=== PATIENT | female | born 1940 | race Caucasian/White ===

== ENCOUNTER 2021-07-24 09:57 | Observation (INO) ==
--- NOTE | 2021-07-22 09:46 | Anesthesiology Consultation ---
Date of Service July 22, 2021 Assessment & Plan (1) Encounter for pre-operative examination: - check EKG stat am DOS. To anesthesiologist discretion if additional testing needed am DOS. - COVID screening: Per passenger vessel chef on 07/22/2021: Travel screen negative, no k nown COVID-19 positive contacts or current COVID-19 related symptoms in past 2 weeks. Pt vaccinated. Surgeon arranging preop COVID testing, scheduled 07/22/2021. Awaiting results. Chart Review Chart Review: Acceptable Risk for Surgery and Patient NOT seen in Pre Admission Testing History Surgery Operation Date: 07/24/21 10:35 Proposed Procedures p Laparoscopic Repair Hiatal Hernia with Partial Gastric Fundoplication - Luther Stratton, DO Height/Weight Height: 5 ft 4 in Weight: 72.575 kg Allergies Allergy/AdvReac Type Severity Reaction Status Date / Time nitrofurantoin AdvReac Mild nausea/vomi Verified 07/01/21 11:37 ting sulfamethoxazole AdvReac Mild nausea/vomi Verified 07/01/21 11:37 ting trimethoprim AdvReac Mild nausea/vomi Verified 07/01/21 11:37 ting Medications Home Medications Medication Instructions Recorded Confirmed Last Taken aspirin 81 mg tablet 81 mg PO QAM tab 08/02/18 07/22/21 04/27/21 cyanocobalamin (vitamin B-12) 500 500 mcg PO QAM tab 08/02/18 07/22/21 04/27/21 mcg tablet diphenhydramine HCl 25 mg tablet 25 mg PO HS PRN tab 08/02/18 07/22/21 Unknown loratadine 10 mg tablet 10 mg PO QAM tab 08/02/18 07/22/21 04/27/21 cholecalciferol (vitamin D3) 125 125 mcg PO QAM 04/24/21 07/22/21 04/27/21 mcg (5,000 unit) capsule omeprazole 20 mg capsule,delayed 20 mg PO QAM #90 cap 05/27/21 07/22/21 Unknown release Past Medical History Medical History (Updated 07/22/21 @ 09:45 by Nessa Valdivia PA-C) Chronic GERD Dyslipidemia Dysphagia Hiatal hernia History of COVID-19 diagnosed 02/2020--mild, cold type symptoms--no issues now History of esophageal dilatation Hyperlipidemia Osteopenia Schatzki's ring Past Family History Family History Father Alcohol abuse Sister Lung disease Other No family history of adverse response to anesthesia Stroke Past Surgical History Surgical History History of bilateral cataract extraction History of bilateral tubal ligation History of colonoscopy History of esophagogastroduodenoscopy (EGD) History of partial hysterectomy History of tooth extraction upper denture Social History Smoking Status: Never smoker Do You Dip or Chew Tobacco: No Hx Alcohol Use: No Hx Substance Use: No substance use type: does not use Lab Results Anesthesia Preop Results Results Anesthesia Widget: WBC 6.58 K/uL (4.8-10.8) 07/09/21 Hgb 12.6 g/dL (12.0-16.0) 07/09/21 Hct 38.6 % (37-47) 07/09/21 Plt 223 K/uL (130-400) 07/09/21 Na 137 mmol/L (136-145) 07/09/21 K 4.2 mmol/L (3.5-5.1) 07/09/21 Cl 106 mmol/L (98-107) 07/09/21 CO2 27 mmol/L (21-32) 07/09/21 BUN 27 mg/dl (6-23) H 07/09/21 Creat 0.87 mg/dl (0.6-1.2) 07/09/21 Glucose Level 96 mg/dl (70-99(Fasting)) 07/09/21 Testing Chest X-Ray Date: 07/09/21 No focal parenchymal consolidation
[~2021-07-24 09:57] MED LIST: LR 15ML/HR IV SCH; ceFAZolin 2000MG 2,000 MG/15 ML SYR IV SCH
--- NOTE | 2021-07-24 12:02 | History & Physical Bridge Note ---
Date of Service July 24, 2021 History & Physical Bridge Note I have examined the patient, reviewed the History & Physical and in the interval since the performance of the History & Physical I have noted the following changes of clinical significance: no changes noted
[2021-07-24] MEDS ORDERED: EPINEPHrine INJ 1 MG/ML AMP ONE (12:27)
[2021-07-24] MEDS ORDERED: BUPIVACAINE 0.5 % 5 MG/1 ML MPF 30ML VIAL ONE (12:27)
[2021-07-24] MEDS ORDERED: fentaNYL citrate 100 MCG/2 ML VIAL ONE ×3 (12:32→14:16)
[2021-07-24] MEDS ORDERED: ATROPINE SULFATE 0.1 MG/ML 10ML SYR IV PRN (12:41)
[2021-07-24] MEDS ORDERED: LABETALOL HCL IV 5 MG/ML 20ML IV PRN (12:41)
[2021-07-24] MEDS ORDERED: KETOROLAC TROMETHAMINE 15 MG/ML VIAL IV PRN (12:41)
[2021-07-24] MEDS ORDERED: HYDROmorphone INJ 1 MG/ML SYRINGE IV PRN (12:41)
[2021-07-24] MEDS ORDERED: ONDANSETRON INJ 2 MG/ML 2 ML VIAL IV PRN ×2 (12:41→16:29)
[2021-07-24] MEDS ORDERED: PROPOFOL IV EMULSION 10 MG/ML 20 ML VIAL IV ONE (13:14)
[2021-07-24] MEDS ORDERED: ROCURONIUM BROMIDE 10 MG/ML 5 ML VIAL IV ONE (13:15)
[2021-07-24] MEDS ORDERED: ONDANSETRON INJ 2 MG/ML 2 ML VIAL ONE ×2 (13:15→14:04)
[2021-07-24] MEDS ORDERED: LARYING-O-JET KIT (LTA) ONE (13:18)
[2021-07-24] MEDS ORDERED: GLYCOPYRROLATE 0.2 MG/ML VIAL ONE (13:53)
[2021-07-24] MEDS ORDERED: NEOSTIGMINE METHYLSULFATE 1 MG/ML 10ML VIAL ONE (13:53)
[2021-07-24] MEDS ORDERED: ACETAMINOPHEN 1000 MG/100 ML IV IV ONE (14:01)
--- NOTE | 2021-07-24 14:14 | Post Operative Brief Note ---
PG Immediate Post Op with CF Date of Surgery July 24, 2021 Pre & Post Diagnosis Operation Date: 07/24/21 12:05 Pre-Op Diagnosis: Incarcerated Hiatal Hernia; gerd Post-Op Diagnosis: Incarcerated Hiatal Hernia;gerd I identified the patient and participated in the time-out.: Yes Procedure Operation Date: 07/24/21 12:05 Actual Procedures p Laparoscopic Repair Hiatal Hernia with Toupet (Partial) Gastric Fundoplication(Not Applicable) - Luther Stratton DO Surgeon Luther Stratton DO [employer] angelique Lopez Estimated Blood Loss 10 Findings Consistent with Post-Op Diagnosis Specimens Specimen Description: No specimens per surgeon
[2021-07-24] MEDS ORDERED: SODIUM CHLORIDE 0.9% 50 ML BAG ONE ×2 (14:41→15:09)
[2021-07-24] MEDS ORDERED: PROMETHAZINE HCL INJ 25 MG/ML 1 ML VIAL ONE ×2 (14:42→15:09)
[2021-07-24] MEDS: PROMETHAZINE HCL 6.25 MG in SODIUM CHLORIDE 0.9% 50 ML IV PRN ×2 (14:42→15:12)
[2021-07-24] MEDS ORDERED: PROMETHAZINE HCL 6.25 MG in SODIUM CHLORIDE 0.9% 50 ML IV STA (15:11)
[2021-07-24] MEDS ORDERED: KETOROLAC 30 MG/ML VIAL ONE (15:47)
[2021-07-24] MEDS ORDERED: KETOROLAC 30 MG/ML VIAL IV ONE (15:48)
[2021-07-24] MEDS ORDERED: oxyCODONE HCL IR 5 MG TAB (IMMEDIATE RELEASE) PO PRN ×2 (16:29)
[2021-07-24] MEDS ORDERED: MoRPHine SULFATE 4 MG/ML 1 ML CARP\\VIAL IV PRN (16:29)
[2021-07-24] MEDS ORDERED: MoRPHine SULFATE 2 MG/ML CARP IV PRN (16:29)
[2021-07-24] MEDS ORDERED: PROMETHAZINE HCL 12.5 MG in SODIUM CHLORIDE 0.9% 50 ML IV PRN (16:29)
--- NOTE | 2021-07-24 16:36 | Anesthesiology Progress Note ---
Date of Service July 24, 2021 Anesthesia Post Procedure Vital Signs Vital Signs: Temp Pulse Pulse Resp BP Pulse Ox 07/24/21 16:10 63 17 163/79 H 96 07/24/21 16:00 71 16 141/95 H 97 07/24/21 15:50 60 18 164/68 H 98 07/24/21 15:40 64 14 173/72 H 99 07/24/21 15:30 65 22 154/76 H 93 07/24/21 15:20 62 15 173/69 H 94 07/24/21 15:10 66 21 184/75 H 97 07/24/21 15:00 66 21 161/114 H 97 07/24/21 14:50 71 15 172/86 H 97 07/24/21 14:40 78 17 101/87 98 07/24/21 14:30 70 17 171/86 H 97 07/24/21 14:24 36.4 C L 69 16 174/88 H 96 07/24/21 11:01 37 C 61 20 152/83 H 98 Pain Intensity Right Shoulder: Pain Intensity: 5 Transfer of Care Handoff Completed per policy Notes Mental Status: alert / awake / arousable Patient Amnestic to Procedure: Yes Nausea / Vomiting: adequately controlled Pain: adequately controlled Airway Patency, RR, SpO2: stable & adequate BP & HR: stable & adequate Hydration State: stable & adequate Anesthetic Complications: no major complications apparent
[2021-07-24] MEDS: LACTATED RINGER'S 1,000 ML IV SCH (17:40)
--- NOTE | 2021-07-24 18:23 | Electrocardiogram Report ---
Test Reason : Blood Pressure : / mmHG Vent. Rate : 055 BPM Atrial Rate : 055 BPM P-R Int : 172 ms QRS Dur : 072 ms QT Int : 450 ms P-R-T Axes : 041 014 028 degrees QTc Int : 430 ms Sinus bradycardia Otherwise normal ECG When compared with ECG of 02-JAN-2012 13:56, No significant change was found Confirmed by Salo Sage ([id number]) on 07/24/2021 6:22:58 PM Referred By: Luther Stratton Confirmed By:Woody Sage
[2021-07-24] MEDS: ACETAMINOPHEN 1000 MG/100 ML IV IV PRN (21:04)
[2021-07-25] MEDS: LACTATED RINGER'S 1,000 ML IV SCH (04:27)
[2021-07-25 07:31] LABS: Basophils # (auto) 0.01 K/uL (0-0.2); Basophils % (auto) 0.1 %; Eosinophils # (auto) 0.08 K/uL (0-0.5); Hematocrit (blood only) 34.8 % (37-47); Hemoglobin 11.4 g/dL (12.0-16.0); Immature Granulocytes # (auto) 0.01 K/uL (0.00-0.02); Immature Granulocytes % (auto) 0.1 %; Lymphocytes % (auto) 25.9 %; Mean Corpuscular Hemoglobin 30.4 pg (25-34); Mean Corpuscular Hgb Conc 32.8 g/dL (32-36); Mean Corpuscular Volume 92.8 fL (80-100); Mean Platelet Volume 10.1 fL (7.4-10.4); Monocytes # (auto) 0.62 K/uL (0.11-0.59); Neutrophils # (auto) 5.01 K/uL (1.4-6.5); Neutrophils % (auto) 64.9 %; Platelet Count 216 K/uL (130-400); RDW Coefficient of Variation 14.1 % (11.5-14.5); RDW Standard Deviation 47.9 fL (36.4-46.3); Red Blood Count 3.75 M/uL (4.2-5.4); White Blood Count 7.73 K/uL (4.8-10.8)
[2021-07-25 08:06] LABS: BUN Creatinine Ratio 18.4 (10-20); Calcium 8.1 mg/dl (8.5-10.1); Creatinine Clr Calc Pharmacy 51.2 ml/min; Est GFR (African American) 73.4 ml/min; Est GFR (Non-African American) 63.4 ml/min; Potassium 3.8 mmol/L (3.5-5.1)
[2021-07-25] MEDS: ACETAMINOPHEN 1000 MG/100 ML IV IV PRN (08:43)
[2021-07-25] MEDS ORDERED: LORATADINE 10 MG TAB PO SCH (09:00)
[2021-07-25] MEDS ORDERED: ASPIRIN 81 MG ECTAB PO SCH (09:00)
[2021-07-25] MEDS ORDERED: PANTOprazole 40 MG TAB PO SCH (09:00)
--- NOTE | 2021-07-25 10:32 | Operative Report ---
PG Post Operative Report Pre & Post Diagnosis Operation Date: 07/24/21 12:05 Pre-Op Diagnosis: Incarcerated Hiatal Hernia Post-Op Diagnosis: Incarcerated Hiatal Hernia I identified the patient and participated in the time-out.: Yes Procedure Operation Date: 07/24/21 12:05 Actual Procedures p Laparoscopic Repair Hiatal Hernia with Toupet (Partial) Gastric Fun doplication(Not Applicable) - Luther Stratton DO Surgeon Luther Stratton DO Carpenter angelique Lopez Estimated Blood Loss 10 Findings Consistent with Post-Op Diagnosis Specimens none Description of Procedure After informed consent was obtained the patient was taken to the operating room and placed in supine position. After successful intubation an orogastric tube was placed and the abdomen was sterilely prepped and draped in usual fashion. A periumbilical incision was made with 11 blade scalpel and carried down through the soft tissue using cautery. The anterior rectus fascia was opened using cautery and two #0 Vicryl stay sutures were placed. Peritoneum was elevated with hemostats and incised under direct vision using Metzenbaum scissor. A finger sweep was performed. A 12 mm Christina trocar was placed and the abdomen was insufflated to 18 mmHg. The laparoscope was inserted. The patient was placed in a reverse Trendelenburg position. No gross abnormalities in the upper abdomen were initially noted. A subxiphoid 12 mm port a right upper quadrant 5 mm port a right flank 5 mm port and a left flank 5 mm port were all placed under direct vision. A liver retractor was used to elevate the left lobe of the liver exposing a large hiatal hernia with gastric incarceration. A liver retractor mounted to the table was used throughout the procedure to help with exposure. We were able to manually reduce the stomach without much difficulty. At least half if not two thirds of the stomach was in the chest. I began by taking down the hernia sac starting along the right crura of the diaphragm. I continued to take down the sac anteriorly and over to the left hemant of the diaphragm. Eventually I was able to take down the hernia sac in 360 degrees. Once the hernia sac was down the stomach laid nicely in the abdomen with no tension. We had anesthesia exchange the orogastric tube for a 50 Mongolian bougie. I was able to place several crural stitches posterior to the stomach with 0 Tycron. We then completed the closure anteriorly again using 0 Tycron. Once the defect was closed I took down the top 4 short gastric vessels using the harmonic scalpel. I then created a retrogastric window on the superior aspect of the stomach. The fundus of the stomach was able to easily be pulled over to the medial side. Shoeshine test was easy to perform. I performed a posterior gastropexy by securing the body of the stomach to the right hemant of the diaphragm. I then completed the 270 degree wrap by securing the fundus to the anterior gastric ser lyndsey. I also took some of the body of the stomach on the lateral side and again secured it to anterior serosa creating the partial fundoplication. The wrap was nice and loose and floppy. There was adequate hemostasis. No other abnormalities were identified. A liver retractor and all the trochars were removed. The bougie was easily removed as well. The abdomen was desufflated. The fascia of the camera port was closed using 0 Vicryl in a [id number] fashion. All the wounds were irrigated and closed using 4-0 Monocryl. Marcaine was injected around them for postoperative analgesia and skin glue used as a dressing. The patient was awakened extubated and transferred to recovery in stable condition. My physician speech and language assistant was present for the entire case. He was instrumental in running the camera as well as assisting with exposure throughout my dissection wound closure and dressing placement. I attest to the content of the Intraoperative Record and any orders documented therein. Any exceptions are noted below.
--- NOTE | 2021-07-25 11:35 | Surgery Progress Note ---
Date of Service July 25, 2021 Assessment & Plan (1) Incarcerated hiatal hernia: Plan: POD#1 laparoscopic hiatal hernia repair patient doing well. Labs and vitals okay tolerating clear liquids; no n/v Okay for discharge on a liquid diet, will f/u with Dr. Stratton in 7-10 days As above. Doing well. Tolerating diet. Incisional pain managed. Okay for discharge. Instructions given Admission and Anticipated Discharge Date Admission Date: July 24, 2021 Subjective Patient is feeling well. Having some discomfort but is manageable. Tolerating clear liquids, no n/v. Looking forward to going home. Physical Exam Physical Exam: awake/alert, no distress Gastrointestinal (Abdomen): Inspection/Auscultation: + abdominal surgical incision (c/d/i) Percussion/Palpation: + abdomen tender (ivan incisional discomfort) and abdomen soft Results & Data ([facility]) Vital Signs (Past 12 Hours) Vital Signs Temp Pulse Resp BP BP Pulse Ox 07/25/21 07:08 36.9 C 66 16 155/84 H 92 07/25/21 03:21 37.0 C 67 16 153/86 H 92 07/24/21 23:34 37.0 C 80 16 132/74 92 PG Care Time/CCT Total # of Minutes Spent Total Time Spent with Patient: Total time spent is greater than 50% in coordination of care (as documented) at patient's floor/unit and/or counseling patient: Coding Level of Care Code None Diagnoses Incarcerated hiatal hernia K44.0
--- NOTE | 2021-07-28 13:42 | Discharge Summary ---
Date of Service July 28, 2021 Principal Diagnosis Incarcerated hiatal hernia Discharge Exam Constitutional WD/WN, vitals as above Gastrointestinal (Abdomen) Inspection/Auscultation: + abdominal surgical incision (clean, dry); abdomen not distended Percussion/Palpation: abdomen soft Discharge Data Allergies Allergy/AdvReac Type Severity Reaction Status Date / Time nitrofurantoin AdvReac Mild nausea/vomi Verified 07/24/21 10:51 ting sulfamethoxazole AdvReac Mild nausea/vomi Verified 07/24/21 10:51 ting trimethoprim AdvReac Mild nausea/vomi Verified 07/24/21 10:51 ting Procedures Performed Operation Date: 07/24/21 12:05 Actual Procedures p Laparoscopic Repair Hiatal Hernia with Toupet (Partial) Gastric Fundoplication(Not Applicable) - Luther Stratton DO Hospital Course (1) Incarcerated hiatal hernia: 81 y/o female with incarcerated hiatal hernia was taken to the operating room for laparoscopic repair and transferred to the surgical floor for observation. She did well overnight and was was able to tolerate liquid diet and tolerate oral analgesics. She was stable for discharge home in the morning. Total Time Total Time Spent Total Time Spent (In Minutes): 15 Discharge Plan Discharge Items Patient Disposition: Home - Self-Care Reason For Visit: Incarcerated Hiatal Hernia Discharge Diagnosis: hiatal hernia repair Activity: Per Instructions section Lifting: No more than 10 pounds Bathing Comment: may shower; no soaking in tubs/pools Exercise/Sports: Wait until after follow-up appointment Driving/Machine Use: no driving while taking any narcotics for pain Non-emergency contact: Surgeon Call non-emergency contact if: you have any medication questions, your symptoms worsen, your pain is not controlled, your pain is concerning for you, you have a fever, your temperature is above 101.5, your wound has increased redness, your wound has increased drainage and your wound pain has increased Follow-up/Referrals: Shon Villasenor MD [Primary Care Provider] - 08/04/21 2:30 pm Luther Stratton DO [Surgeon] - 08/04/21 10:00 am (Please call to schedule follow up in clinic within 7-10 days) Diet: Other - See Diet Comment Addtl Attending Provider Instructions: Please follow diet as instructed previously by Dr. Stratton. Anything soft/liquidy that can be eaten with a spoon until you are seen in follow up Pending Studies at Discharge: No Stand-Alone Forms: My [facility] Medications and DC Order Prescriptions: New oxycodone-acetaminophen [Percocet] 5-325 mg tablet 1 - 2 tab PO .q4-6h PRN (Reason: pain, for initial therapy, max 6 tabs per day) Qty: 15 RF: 0 ondansetron 4 mg tablet,disintegrating 4 mg PO Q8H PRN (Reason: nausea and vomiting) Qty: 10 RF: 0 Continued omeprazole 20 mg capsule,delayed release(DR/EC) 20 mg PO QAM Qty: 90 RF: 3 aspirin 81 mg tablet 81 mg PO QAM RF: 0 diphenhydramine HCl [Allergy] 25 mg tablet 25 mg PO HS PRN (Reason: Allergy Symptoms) RF: 0 loratadine [Claritin] 10 mg tablet 10 mg PO QAM RF: 0 cyanocobalamin (vitamin B-12) 500 mcg tablet 500 mcg PO QAM RF: 0 cholecalciferol (vitamin D3) 125 mcg (5,000 unit) capsule 125 mcg PO QAM RF: 0 Discharge Orders: Discharge Order (Routine); Ordered 07/25/21 Ordered By: Nohelia Escudero/Other Patient Handouts: Laparoscopic Hernia Repair Admission Data Admit Date/Time: 07/24/21 14:17 Attending Provider: Luther Stratton Admit Provider: Luther Stratton Primary Care Provider: Shon Villasenor Other Interventions: Discharge Summary Assessment (RN) Last Done: 07/25/21 12:46 Coding Level of Care Code D/C DAY MANAGEMENT <30 MINS Diagnoses Incarcerated hiatal hernia K44.0
== END 2021-07-25 13:40 | disposition home or self-care (01) ==
LOC: ASU 09:57 → 3W 09:57